=== PATIENT | male | born 1990 | race Caucasian/White ===

== ENCOUNTER 2022-11-21 09:23 | Outpatient (CLI) | payer OTHER, SELFPAY ==
--- NOTE | ~2022-11-21 | CT_ITS ---
EXAMINATION: CT sinus wo con DATE: 11/21/2022 09:40 INDICATION: Chronic sinusitis. Drainage. TECHNIQUE: Computed tomography (CT) of the paranasal sinuses was performed without intravenous contra st. The dose-length product was 295.93 mGy-cm. Automated exposure control and iterative reconstructio n technique were employed. COMPARISON: None FINDINGS: There is mucosal thickening of the maxillary and ethmoid sinuses. There are probable mucus retention cysts of the maxillary sinuses. Leftward nasal septal deviation. There is partial occlusion of the right ostiomeatal unit. Left ostiomeatal unit is patent. Mastoids are pneumatized. IMPRESSION: 1. Moderate sinus disease primarily involving the maxillary and the ethmoid sinuses. Reviewed, dictated and finalized at location B. IMPRESSION: 1. Moderate sinus disease primarily involving the maxillary and the ethmoid sin uses.
== END 2022-11-21 09:24 | disposition home or self-care (01) ==
PROVIDERS: PCP Internal Medicine; Visit Provider Internal Medicine
DX: J32.9 Chronic sinusitis, unspecified (principal)
CPT/HCPCS: 70486